=== PATIENT | female | born 1945 | race Caucasian/White ===

== ENCOUNTER 2018-08-19 13:38 | Outpatient (CLI) | payer MEDICARE, OTHER ==
--- NOTE | 2018-08-19 16:29 | XRAY Report ---
Reason: COUGH Procedure Date: 08/19/2018 Accession Number: [id number] / [id number] Procedure: XRN - Chest 2 View X-Ray CPT Code: 94739 FULL RESULT: EXAM: CHEST RADIOGRAPHY EXAM DATE: 08/19/2018 02:06 PM. CLINICAL HISTORY: COUGH. COMPARISON: None. TECHNIQUE: 2 views. FINDINGS: Lungs/Pleura: Mildly increased interstitial markings with prominence of central pulmonary arteries. No airspace consolidation is detected. No pleural effusion or pneumothorax. Mediastinum: Mild cardiomegaly. Other: None. IMPRESSION: No acute airspace disease. Mildly prominent interstitial markings in the setting of cardiomegaly, possibly mild pulmonary edema. [facility]
== END 2018-08-19 13:39 | disposition home or self-care (01) ==
LOC: DI.N 13:38
PROVIDERS: ATTEND Specialist
DX: R05 Cough (principal); I51.7 Cardiomegaly
CPT/HCPCS: 71046